=== PATIENT | female | born 1955 | race Two or more races ===

== ENCOUNTER 2017-12-22 19:39 | Emergency (ER) | payer MEDICAID ==
[~2017-12-22] VITALS: Ht 162.6 cm; Wt 62.1 kg
[~2017-12-22 19:39] MED LIST: AMBIEN CR6.25 MG ORAL; ASPIR 8181 MG ORAL; GABAPENTIN300 MG ORAL; LEVETIRACETAM500 MG ORAL; LISINOPRIL2.5 MG ORAL; LORAZEPAM0.5 MG ORAL; MECLIZINE HCL25 MG ORAL; OYSTER SHELL 51 EAC1 PO; PHENYTOIN100 MG/4 M ORAL; SIMVASTATIN40 MG ORAL
[2017-12-22] MEDS ORDERED: LEVETIRACETAM500 MG ORAL (19:43)
[2017-12-22] MEDS ORDERED: AMLODIPINE BES2.5 MG ORAL (19:43)
[2017-12-22] MEDS ORDERED: GABAPENTIN300 MG ORAL (19:43)
[2017-12-22] MEDS ORDERED: VIMPAT100 MG PO (19:43)
[2017-12-22 19:45] VITALS: BP 160/71
--- NOTE | 2017-12-22 20:56 | Emergency Room Report ---
History of Present Illness General Chief Complaint: Abdominal Pain Source: Patient, Family Member Present Illness HPI This is a 62-year-old female with a history of anxiety, seizure who presents with chief complaint abdominal pain. Onset for several months now. Seems getting worse in the last week. Pain is in epigastric area going to the left side. No nausea no vomiting. No diarrhea. Pain is sharp and crampy in nature. No associated with food. Seen her primary care doctor several times placed on proton pump inhibitor. Also given pain medication. Has not had any workup. Scheduled for workup in 2 weeks. Because of increasing pain she came in. Pain is 8 out of 10. Crampy in nature. Allergies: Coded Allergies: No Known Allergies (Verified , 11/04/09) Patient History Past Medical History: see triage record, old chart reviewed, seizures, psych hx Past Surgical History: other Pertinent Family History: none Social History: Denies: smoking Last Menstrual Period: none Now: No Immunizations: other Reviewed Nursing Documentation: PMH: Agreed; PSxH: Agreed Nursing Documentation-PMH Hx Hypertension: Yes Hx Seizures: Yes Review of Systems Eye: Denies: eye pain, blurred vision ENT: Denies: ear pain, nose congestion, throat swelling Respiratory: Denies: cough, shortness of breath Cardiovascular: Denies: chest pain, palpitations Gastrointestinal: Reports: abdominal pain; Denies: diarrhea, nausea, vomiting Musculoskeletal: Denies: back pain, joint pain Skin: Denies: rash Neurological: Denies: headache, numbness Endocrine: Denies: increased thirst, increased urine Hematologic/Lymphatic: Denies: easy bruising All Other Systems: negative except mentioned in HPI Physical Exam Vital Signs Date Time Temp Pulse Resp B/P (MAP) Pulse Ox O2 Delivery O2 Flow Rate FiO2 12/22/17 19:34 99.1 68 18 170/86 98 Room Air 99.1 vitals normal except for high blood pressure Sp02 EP Interpretation: reviewed, normal General Appearance: well appearing, no apparent distress, alert Head: normocephalic, atraumatic Eyes: bilateral eye PERRL, bilateral eye EOMI ENT: hearing grossly normal, normal pharynx Neck: full range of motion, supple, no meningismus Respiratory: chest non-tender, lungs clear, normal breath sounds Cardiovascular #1: regular rate, rhythm, no murmur Gastrointestinal: normal bowel sounds, non tender, no mass, no organomegaly, no bruit, non-distended Musculoskeletal: back normal, gait/station normal, normal range of motion Psychiatric: mood/affect normal Skin: warm/dry Medical Decision Making Diagnostic Impression: Primary Impression: Abdominal pain Qualified Codes: R10.84 - Generalized abdominal pain Additional Impression: Hypertension Qualified Codes: I10 - Essential (primary) hypertension ER Course Patient presents with numbness of abdominal pain. This is a chronic in nature. No evidence of obstruction or acute abdomen. No infection. We'll discharge home. I will give her results of the labs and CT scan report. She has an appointment to see a GI specialist in 2 weeks. Lab Results Impression labs are normal Last Vital Signs Date Time Temp Pulse Resp B/P (MAP) Pulse Ox O2 Delivery O2 Flow Rate FiO2 12/22/17 19:34 99.1 68 18 170/86 98 Room Air 99.1 Status: improved Disposition: HOME, SELF-CARE Condition: Stable Referrals: [facility],REFERR[facility] (PCP) Patient Instructions: Abdominal Pain, Adult Additional Instructions: Keep your appointment with specialist as scheduled. Follow-up your doctor in 23 days of not better. Return if worse. WANDA HERNANDEZ M.D. Dec 22, 2017 20:56
[2017-12-22] MEDS ORDERED: Morphine Sulfate 4mg/ml Inj IVP ONE (21:00)
[2017-12-22 21:22] LABS: APPEARANCE,URINE CLEAR; BASOPHILS % (AUTO) 1.1 % (0.0-2.0); BILIRUBIN, URINE NEGATIVE (NEGATIVE); COLOR,URINE PALE YELLOW; EOSINOPHILS % (AUTO) 0.4 % (0.0-3.0); GLUCOSE, URINE (UA) NEGATIVE (NEGATIVE); HEMATOCRIT 39.6 % (37.0-47.0); HEMOGLOBIN 13.9 G/DL (12.0-16.0); KETONES,URINE NEGATIVE (NEGATIVE); LEUKOCYTE ESTERASE ,URINE NEGATIVE (NEGATIVE); MEAN CORPUSCULAR VOLUME 91 FL (80-99); MONOCYTES % (AUTO) 5.7 % (1.0-10.0); NEUTROPHILS % (AUTO) 65.7 % (45.0-75.0); NITRITE,URINE NEGATIVE (NEGATIVE); PH,URINE 8 (4.5-8.0); PLATELET COUNT 187 K/UL (150-450); PROTEIN,URINE NEGATIVE (NEGATIVE); RED BLOOD COUNT 4.36 M/UL (4.20-5.40); RED CELL DISTRIBUTION WIDTH 10.5 % (11.6-14.8); UROBILINOGEN,URINE NORMAL MG/DL (0.0-1.0); WHITE BLOOD COUNT 4.6 K/UL (4.8-10.8)
[2017-12-22 21:32] LABS: ANION GAP 10 mmol/L (5-15); BLOOD UREA NITROGEN 15 mg/dL (7-18); CALCIUM 8.9 MG/DL (8.5-10.1); CARBON DIOXIDE 25 MMOL/L (21-32); CHLORIDE 109 MMOL/L (98-107); CREATININE 0.7 MG/DL (0.55-1.30); POTASSIUM 3.9 MMOL/L (3.5-5.1); SODIUM 144 MMOL/L (136-145)
[2017-12-22 21:37] LABS: ALANINE AMINOTRANSFERASE 28 U/L (12-78); ALBUMIN 3.8 G/DL (3.4-5.0); ALBUMIN/GLOBULIN RATIO 1.2 (1.0-2.7); ALKALINE PHOSPHATASE 105 U/L (46-116); ASPARTATE AMINO TRANSFERASE 23 U/L (15-37); BILIRUBIN,TOTAL 0.2 MG/DL (0.2-1.0)
[2017-12-22 22:30] VITALS: BP 178/73
[2017-12-22 22:50] VITALS: BP 142/76
[2017-12-22 23:00] VITALS: BP 142/76
--- NOTE | 2017-12-23 09:52 | Diagnostic Imaging Report ---
Clinical Indication: Left abdominal pain and painful urination Technique: No oral contrast utilized, per emergency room physician request IV administration nonionic contrast. Venous phase spiral acquisition obtained through the abdomen and pelvis. Multiplanar reconstructions were generated. Total dose length product 791.88 mGycm. CTDIvol(s) 13.04,12.97 mGy. Dose reduction achieved using automated exposure control Comparison: none Findings: There is trace pelvic fluid. There is minimal stranding of the perirectal fat but no rectal wall thickening. No evidence of diverticulosis or diverticulitis. Small to moderate amount of retained stool seen in the proximal colon. The appendix is not definitely identified, but no findings to suggest acute appendicitis are evident. No small bowel distention. No small bowel wall thickening. No free or loculated intraperitoneal gas. The distal esophagus, stomach, duodenum are unremarkable. The liver, gallbladder, bile ducts, pancreas, spleen, adrenals, kidneys are unremarkable. No renal or ureteral calculi, hydronephrosis, or hydroureter. No pelvic mass or adenopathy. No retroperitoneal or mesenteric mass or adenopathy. The uterus is retroverted. The adnexal structures are unremarkable. The bones are unremarkable. There is a 3 mm peripheral pulmonary nodule in the left costophrenic sulcus Impression: Trace pelvic fluid. Etiology/significance uncertain, but not physiologic in a post menopausal female No definite acute process 3 mm nodule left lung base. No further follow-up is necessary if there are no significant risk factors for lung carcinoma. If there are risk factors, then shorter along the CT at 6-12 months is recommended This agrees with the preliminary interpretation provided overnight by [facility]. The CT scanner at [facility] is accredited by the [employer] and the scans are performed using protocols designed to limit radiation exposure to as low as reasonably achievable to attain images of sufficient resolution adequate for diagnostic evaluation.
== END 2017-12-22 23:00 | disposition home or self-care (01) ==
LOC: EDBD 19:39 → EMR 19:45
DX: R10.84 Generalized abdominal pain (principal); I10 Essential (primary) hypertension
CPT/HCPCS: 36415; 74177; 80053; 81003; 83690; 85025; 96361; 96374; 96375; 99284; J2270; J2405; Q9967